=== PATIENT | male | born 1990 | race Caucasian/White ===

== ENCOUNTER → 2024-05-24 | Outpatient (CLI) | payer OTHER, SELFPAY ==
--- NOTE | 2024-05-24 16:12 | RAD_ITS ---
STUDY: X-RAY - ABDOMEN/PELVIS REASON FOR EXAM: Male, 33 years old. KIDNEY STONE TECHNIQUE: Frontal views COMPARISON: None. FINDINGS: Normal visualized lung bases. There is an unremarkable bowel gas pattern. There is no demonstrated free abdominal air. The visualized liver, spleen and kidneys are grossly normal in size and morphology. There is a left-sided ostomy apparatus. Normal soft tissue structures. Normal visualized osseous structures. RAD/Abdomen Single View IMPRESSION: No acute pathology of the abdomen and pelvis. Electronically Signed: Jacek Lu DO at 16:28 EDT Reading Location ID and State: [facility] / [place] Tel [phone], Service support ,
== END | disposition home or self-care (01) ==
PROVIDERS: Referring Provider Nurse Practitioner; Visit Provider Nurse Practitioner
DX: N20.0 Calculus of kidney (principal)
CPT/HCPCS: 74018

== ENCOUNTER → 2024-09-24 | Outpatient (CLI) | payer OTHER, SELFPAY ==
--- NOTE | 2024-09-24 16:30 | CT_ITS ---
We are attempting to reach an attending provider to discuss findings. An addendum with communication details will be sent when the communication is complete. STUDY: CT ABDOMEN AND PELVIS WITHOUT CONTRAST REASON FOR EXAM: Male, 34 years old. CALCULUS OF KIDNEY RADIATION DOSAGE (If Supplied By Facility): CTDIvol = ( 20.30 ) mGy, DLP = ( 1181.86 ) mGycm TECHNIQUE: Transaxial images were obtained from the dome of the diaphragm to the symphysis pubis without oral contrast, and without intravenous contrast. Sagittal and coronal images were reconstructed. Individualized dose optimization techniques were used for this CT. COMPARISON: None. FINDINGS: The visualized lung bases are unremarkable. The visualized portions of the heart are within normal limits. Normal liver. Normal gallbladder and extrahepatic biliary system. Normal spleen. Normal pancreas. Normal bilateral adrenal glands. Normal right kidney. There are tiny bilateral nonobstructing calculi in the lower pole calyx of left kidney and large calculus at the ureteropelvic junction measuring approximately 7 to 8 mm. There is very mild pelvocaliectasis but no significant obstruction Normal visualized stomach. Postsurgical changes status post distal small bowel bowel resection with left lower quadrant stoma placement. 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 . No evidence for acute appendicitis Normal abdominal aorta. Normal inferior vena cava. Normal retroperitoneum. Normal urinary bladder. Small bilateral fat-containing inguinal hernias Normal osseous structures. CT/Abdomen/Pelvis without Cont IMPRESSION: Postsurgical changes status post bowel resection in stomach placement in left lower quadrant with parastomal hernia but no evidence for proximal bowel obstruction.. Large minimally obstructing calculus in the left kidney at the ureteropelvic junction Electronically Signed: Brown Mcclellan MD at 18:52 EST ,
== END | disposition home or self-care (01) ==
PROVIDERS: Referring Provider Urology; Visit Provider Urology
DX: N20.0 Calculus of kidney (principal)
CPT/HCPCS: 74176

== ENCOUNTER → 2024-10-04 | Outpatient (CLI) | payer OTHER, SELFPAY ==
--- NOTE | 2024-10-04 | CALC_PTH ---
PATIENT: MAHI BARBER LOC: [facility] U#:[id number] AGE/SX: 34/M ROOM: RE10/04/[address]: Dr. Alejandro Nesbitt MD : 1990 BED: DIS: 10/04/2024 SPEC #: [id number] RECD: 10/04/24 17:04 STATUS: RADHA GARCIAJanak #: [id number] MAO: 10/04/24 00:[address]: Alejandro Nesbitt DEPT: SURGICAL PATHOLOGY RECD BY: Yo Helton Tissues: CALCULI Procedures: Surgery Specimen Level I HEADER OPERATION: Stone analysis PRE-OP DIAGNOSIS: Calculus of kidney TISSUE SUBMITTED: Calculi GROSS DIAGNOSIS Fragments of stone, clinically urinary stone for analysis (gross only). 10/05/2024 COMMENT The specimen is submitted in its entirety for chemical stone analysis. The results from this study will be reported separately. GROSS DESCRIPTION Received without fixative labeled with the patient's name and designated stone analysis. The specimen consists of multiple fragments of robbins-brown stone measuring <0.1 to 0.3cm in greatest dimension and measuring in aggregate 0.6 x 0.2 x 0.1cm. The entire specimen is submitted for stone analysis. 10/05/2024 CPT: 35669
== END | disposition home or self-care (01) ==
LOC: LABSPEC 15:57
PROVIDERS: Referring Provider Urology; Visit Provider Urology
DX: N20.0 Calculus of kidney (principal)
CPT/HCPCS: 82360; 88300

== ENCOUNTER 2024-10-12 13:29 | Day surgery (SDC) | payer OTHER, SELFPAY ==
[2024-10-12 13:46] VITALS: BP 137/85; PULSE 63; RESP 16; TEMP 36.6; O2SAT 97; BMI 34.4
--- NOTE | 2024-10-12 13:47 | PCM.PRE.AN2 ---
ASA Classification* ASA Classification ASA Classification: 2 Assessment & Plan Anesthesia* Anesthesia Assessment Anesthesia Assessment: Discussed sedation and/or anesthesia options, risks, benefits, and alternatives with patient/parents/legal guardian/POA. Questions invited. The patient/parents/legal guardian/POA seems to understand and agrees to proceed with anesthesia plan. Reviewed the physical assessment, medical history, allergy history and patient home medications list prior to surgery/procedure/anesthetic and documented any changes. Performed airway and anesthesia risk assessments. 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 When Was Last Pacemaker Check QUESTION #4 FULL TEXT: You/Your Family Experience fever (hyperthermia) with Anesthesia Last Oral Intake Last Oral intake: Last Oral Intake NPO since Meds taken in AM with sips of water? 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 Female No 10/09/24 15:23 HX of Motion Sickness Yes 10/09/24 15:23 HX of N/V After Surgery No 10/09/24 15:23 Non-Smoker Yes 10/09/24 15:23 Duration of Surgery greater No 10/09/24 15:23 than 60 minutes Number of Risk Factors 2 10/09/24 15:23 PONV Score Moderate Risk 10/09/24 15:23 Respiratory Assessment Respiratory Assessment - naval surface fire support planner: Respiratory Tract Infection Hx - naval surface fire support planner Hx Respiratory Tract Infection No 10/09/24 15:23 STOP Sleep Apnea STOP Sleep Apnea - naval surface fire support planner: STOP Sleep Apnea - naval surface fire support planner Hx Hypertension No 10/09/24 15:23 Hx Sleep Apnea No 10/09/24 15:23 CPAP BIPAP Do you snore loudly (louder No 10/09/24 15:23 than talking or can be heard Do you often feel tired/ No 10/09/24 15:23 fatigued/ sleepy during daytime? Has anyone observed you stop No 10/09/24 15:23 breathing during sleep? STOP Results Negative 10/09/24 15:23 QUESTION #5 FULL TEXT : Do you snore loudly (louder than talking or can be heard through closed doors)? 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 Specify any problems Hx of Preganancy in last 3 N/A 10/09/24 15:23 Months Nurse Filling Out Transfusion VCHRISTIN 10/09/24 15:23 & Questions: Date: 10/09/24 10/09/24 15:23 Time: 15:24 10/09/24 15:23 Patient unable to answer at this time (ie. confused, unrespo /Reproduction History /Reproductive History - naval surface fire support planner: /Reproductive Hx- naval surface fire support planner Hx Now Gestational Age (in weeks): EDC: Hx Hx Para Hx Section SAB Active Medications Active Medications: Current Medications Generic Name Dose Route Start Last Admin Trade Name Freq PRN Reason Stop Dose Admin Cefazolin Sodium 2 gm/ N/A 20 mls @ 400 mls/hr 10/12/24 15:25 IV 10/12/24 15:27 PREOP ONE Sodium Chloride 1,000 mls @ 15 mls/hr 10/12/24 13:35 IV 10/18/24 02:54 .Q48H [facility] Protocol PFSH Medical History History of Clostridium difficile infection Anxiety Kidney stones Back pain Injury of head and neck Former smoker History of Crohn's disease Sleep apnea Home Medications ?Medication ?Instructions ?Recorded ?Last Taken ?Type cefuroxime axetil 500 mg tablet 500 mg PO BID 10/09/24 Unknown History potassium citrate 10 mEq (1,080 10 meq PO BID 10/09/24 Unknown History mg) tablet,extended release ustekinumab 90 mg/mL subcutaneous 90 mg subcut .Q8 WEEKS 10/09/24 Unknown History syringe (Stelara) Allergy/AdvReac Type Severity Reaction Status Date / Time amoxicillin Allergy Severe Hives Verified 10/09/24 15:13 clavulanic acid (From Allergy Severe Hives Verified 10/09/24 15:13 Augmentin) Penicillins (PCN) Allergy Severe Hives Verified 10/09/24 15:13 Surgical History History of colostomy History of bowel resection History of cystoscopy History of cystoscopy Social History Smoking Status: Former smoker Review of Systems (Anesthesia) ROS Narrative System reviewed and no additional complaints, except as documented.
[2024-10-12] MEDS: 0.9% Normal Saline (1000mL) 1,000 ML 15 ML IV (13:59)
--- NOTE | 2024-10-12 14:16 | PCM.HP.STD ---
HPI - General General Date of Service: 10/12/24 Chief Complaint: Recurrent kidney stones HPI Narrative MAHI BARBER, is a 34 M who presents to laser a lot of fragments in the left ureter patient had a fairly large stone in the left renal pelvis was lasered stent was removed but then he had a lot of renal colic afterwards CAT scan was done demonstrated multiple fragments stuck along the course of the ureter I had a stent placed in [facility] he now comes here to [facility] to definitively treat the rest of the remaining fragments along the course of the ureter and also laser any remaining fragments in the kidney plan to laser all the stones I do not plan to place a stent again. [facility] Medical History (Updated 10/12/24 @ 14:[address] Alejandro Nesbitt MD) History of Clostridium difficile infection Anxiety Kidney stones Back pain Injury of head and neck Former smoker History of Crohn's disease Sleep apnea Home Medications ?Medication ?Instructions ?Recorded ?Last Taken ?Type cefuroxime axetil 500 mg tablet 500 mg PO BID 10/09/24 Unknown History potassium citrate 10 mEq (1,080 10 meq PO BID 10/09/24 Unknown History mg) tablet,extended release ustekinumab 90 mg/mL subcutaneous 90 mg subcut .Q8 WEEKS 10/09/24 Unknown History syringe (Stelara) ciprofloxacin HCl 500 mg tablet 500 mg PO BID #10 tabs 10/12/24 Unknown Rx (Cipro) oxycodone 5 mg tablet 5 mg PO Q6H PRN pain 3 days #20 10/12/24 Unknown Rx tabs Allergy/AdvReac Type Severity Reaction Status Date / Time amoxicillin Allergy Severe Hives Verified 10/09/24 15:13 clavulanic acid (From Allergy Severe Hives Verified 10/09/24 15:13 Augmentin) Penicillins (PCN) Allergy Severe Hives Verified 10/09/24 15:13 Surgical History History of colostomy History of bowel resection History of cystoscopy History of cystoscopy Social History Smoking Status: Former smoker Vital Signs Vital Signs Vital Signs: 10/12/24 13:46 10/12/24 13:46 Temperature 97.9 F Temperature Source Temporal Pulse Rate 63 Respiratory Rate 16 Respiratory Pattern Normal Blood Pressure 137/85 H Blood Pressure Mean 102 Blood Pressure Source Monitor Blood Pressure Position Semi-Fowlers Blood Pressure Location Left Arm Pulse Ox 97 Oxygen Delivery Method Room Air Weight Weight: 112 kg Body Mass Index (BMI) 34.4
--- NOTE | 2024-10-12 14:17 | DCINST_ITS ---
Discharge Instructions Diet Discharge Diet: No restrictions DC O2, CPAP, BIPAP needs Home O2 Discharge instructions: No Dressing / Incision Discharge Activity: Return to Normal Activity and May Not Drive (while taking narcotic pain medications.) Dressing / Incision Call your doctor if you observe: Fever of 101 or Higher Follow Up Care Please Follow Up With: Alejandro Nesbitt MD When: Call [phone] for an appointment Test Results: Test results from this visit will be discussed in further detail at your follow- up appointment, if applicable. Discharge Plan Admission Primary Reason for Your Visit: Laser of left kidney stones and stent removal Attending Provider: Alejandro Nesbitt Primary Care Provider: LONNY JONES Instructions Print Language: Spanish Discharge Orders/Prescriptions Prescriptions: New oxycodone 5 mg tablet 5 mg PO Q6H PRN (Reason: pain) 3 Days Qty: 20 0RF ciprofloxacin HCl [Cipro] 500 mg tablet 500 mg PO BID Qty: 10 0RF Continued potassium citrate 10 mEq (1,080 mg) tablet extended release 10 meq PO BID cefuroxime axetil 500 mg tablet 500 mg PO BID Stelara 90 mg/mL syringe 90 mg subcut .Q8 WEEKS Referrals / Follow Up: LONNY JONES [Other] Alejandro Nesbitt MD [Med Staff - Active Staff] - Disposition Disposition (needs filled in before D/C Order can be placed): Home, Self Care
[2024-10-12] MEDS: Cefazolin 2 GM in Syringe IV (14:45)
--- NOTE | 2024-10-12 15:19 | OP.PCM_ITS ---
Operative Report (Standard) Operative Information Date of Procedure: 10/12/24 Pre-Operative Diagnosis: Multiple fragments along the course of the left ureter status post stent Post-Operative Diagnosis: The same Surgery/Procedure Performed: Cystoscopy, removal of left stent, left ureteroscopy laser lithotripsy of stones. supervisor dyer: No Type of Anesthesia: General RN Documented Start/Stop Times: Operation Date: 10/12/24 15:25 Case Time Into Pre-Op 10/12/24 13:34 Out of Pre-Op 10/12/24 14:35 Anesthesia Start 10/12/24 14:38 Into Room 10/12/24 14:38 Procedure Start 10/12/24 14:48 Procedure Start Time: 14:48 Procedure Stop Time: 15:20 Select all DRAINS/GRAFTS/IMPLANTS that apply: None Estimated Blood Loss: 0 Specimen collected: No Description of surgery: This is a 34-year-old male with Crohn's disease and recurrent kidney stones he had a really large stone in the left renal pelvis underwent laser lithotripsy of the stone did really well with this thought we lasered everything that small little pieces we pulled out the stent however he had some big fragments that were stuck in the ureter had that the stent replaced now comes back to finish lasering the stone fragments I could not pass. Patient is taken back to the operating room after smooth induction of anesthesia he was placed in dorsolithotomy position. Went in the bladder with a 21 Yoruba rigid cystourethroscope grabbed the existing stent pulled out the meatus and then went into the bladder with the flexible ureteroscope was able to get into the ureter encountered some stone fragments that then used irrigation to pull these fragments out and then went up the ureter I encountered several other fragments this was lasered using 150 ?m laser fiber with the thulium laser I break these pieces up and then let him flow down the ureter and go back up the ureter until I got all the pieces out of the ureter removed then it went up to the kidney did not really have any major fragments in the upper pole, and then I went to the lower pole of the left kidney and there was a large fragments in a pile of stones or these were all lasered completely with the thulium laser into little tiny pieces after successfully lasering everything I did not see anything any other fragments like that could cause problems worked my way down the ureter no other fragments along the course of the ureter I then decided not to put a stent in since everything was really just. I then drained the patient's bladder anesthetic was reversed and taken back to PACU in good condition we will see in about 6 weeks for checkup Surgical Findings: Lots of stones along the course of the ureter that were lasered and removed from the ureter, a pile of stones in the left lower pole kidney that were lasered completely Complications Complications: No Admit VTE Documentation VTE Present on Admission: No VTE Mechan Device Prophylaxis: SCD's VTE Pharm Prophylaxis ordered?: No
--- NOTE | 2024-10-12 15:25 | CALC_PTH ---
PATIENT: MAHI BARBER LOC: [facility] U#:[id number] AGE/SX: 34/M ROOM: RE10/12/[address]: Dr. Alejandro Nesbitt MD : 1990 BED: DIS: 10/12/2024 SPEC #: [id number] RECD: 10/12/24 16:28 STATUS: RADHA DOUGLAS #: [id number] MAO: 10/12/24 15:[address]: Alejandro Nesbitt DEPT: SURGICAL PATHOLOGY RECD BY: Steffanie Mckeon Tissues: CALCULI Procedures: Surgery Specimen Level I HEADER OPERATION: Ureteroscopy, laser PRE-OP DIAGNOSIS: Calculus of left kidney TISSUE SUBMITTED: Renal calculi GROSS DIAGNOSIS A fragment of stone, clinically left renal calculus (gross only). 10/15/2024 COMMENT The calculus is submitted in its entirety for chemical stone analysis. The results from this study will be reported separately. GROSS DESCRIPTION Received without fixative labeled with the patient's name and designated left renal calculi. The specimen consists of a minute fragment of robbins-brown stone measuring 0.1 cm in greatest dimension. The entire specimen is submitted for stone analysis. 10/15/2024 CPT: 80627
--- NOTE | 2024-10-12 15:29 | PCM.POST.ANE ---
Anesthesia: Postop Eval I Current Vital Signs Temperature: 97.6 F Pulse Rate: 81 Blood Pressure: 138/93 Respiratory Rate: 16 Pulse Ox: 96 Oxygen Delivery Method: Room Air Assessment Airway patent: Yes Spontaneous unlabored respirations: Yes Mental status: Awake and Calm nausea: No Vomiting: No Anesthesia Complication: No Fluid Hydration Crystalloid volume administer (ml): 500 Total IV fluid infused: 500 Progress Note Anesthesia document: Postop Eval 1 completed: Yes
[2024-10-12 15:30] VITALS: BP 137/85; BP 137/90; BP 138/83; BP 138/93; PULSE 71; PULSE 76; PULSE 81; RESP 16; RESP 18; TEMP 36.4; O2SAT 96; O2SAT 97; O2SAT 98
[2024-10-12 15:35] VITALS: BP 137/85; BP 145/78; PULSE 78; RESP 18; O2SAT 98
[2024-10-12 15:45] VITALS: BP 131/75; BP 137/85; PULSE 66; RESP 14; O2SAT 96
[2024-10-12 16:01] VITALS: BP 132/83; BP 137/85; PULSE 62; RESP 18; TEMP 36.3; O2SAT 95
[2024-10-12 16:16] VITALS: BP 130/85; BP 137/85; PULSE 82; RESP 16; O2SAT 97
--- NOTE | 2024-10-14 10:46 | PCM.POSTANE2 ---
Anesthesia Postop Eval I Sum Postop Eval Completion status Anesthesia document: Postop Eval 1 completed: Yes Anesthesia Postop Eval I Summary Anesthesia Postop Eval I Summary: Anesthesia Postop Eval I: Assessment Summary Airway patent Yes 10/12/24 15:30 BRONC BUSTER.MDOT Spontaneous unlabored Yes 10/12/24 15:30 BRONC BUSTER.MDOT respirations Mental status Awake,Calm 10/12/24 15:30 BRONC BUSTER.MDOT nausea No 10/12/24 15:30 BRONC BUSTER.MDOT Vomiting No 10/12/24 15:30 BRONC BUSTER.MDOT Anesthesia Postop Eval I: Fluid Summary Crystalloid volume administer 500 10/12/24 15:30 BRONC BUSTER.MDOT (ml) Colloids volume administered ( ml) Blood Product volume administered (ml) Total IV fluid infused 500 10/12/24 15:30 BRONC BUSTER.MDOT Anesthesia Postop Eval I: Summary Notes Anesthesia Complication No 10/12/24 15:30 BRONC BUSTER.MDOT Anesthesia Complication Comment: Post-operative progress note Anesthesia: Postop Eval II Evaluation Mental status: Awake Pain Level: 0 nausea: No Vomiting: No
--- NOTE | 2024-10-14 10:46 | POSTOPAN2_ITS ---
Anesthesia Postop Eval I Sum Postop Eval Completion status Anesthesia document: Postop Eval 1 completed: Yes Anesthesia Postop Eval I Summary Anesthesia Postop Eval I Summary: Anesthesia Postop Eval I: Assessment Summary Airway patent Yes 10/12/24 15:30 SOCIAL SERVICES.MDOT Spontaneous unlabored Yes 10/12/24 15:30 SOCIAL SERVICES.MDOT respirations Mental status Awake,Calm 10/12/24 15:30 SOCIAL SERVICES.MDOT nausea No 10/12/24 15:30 SOCIAL SERVICES.MDOT Vomiting No 10/12/24 15:30 SOCIAL SERVICES.MDOT Anesthesia Postop Eval I: Fluid Summary Crystalloid volume administer 500 10/12/24 15:30 SOCIAL SERVICES.MDOT (ml) Colloids volume administered ( ml) Blood Product volume administered (ml) Total IV fluid infused 500 10/12/24 15:30 SOCIAL SERVICES.MDOT Anesthesia Postop Eval I: Summary Notes Anesthesia Complication No 10/12/24 15:30 SOCIAL SERVICES.MDOT Anesthesia Complication Comment: Post-operative progress note Anesthesia: Postop Eval II Evaluation Mental status: Awake Pain Level: 0 nausea: No Vomiting: No
[2024-10-22 12:07] LABS: Ca Oxalate, Dihydrate 10 % (.); Uric Acid 90 % (.)
== END 2024-10-12 16:51 | disposition home or self-care (01) ==
LOC: SDC 13:31 → AC 13:32
PROVIDERS: Referring Provider Urology; Visit Provider Urology
PROC: 0TJ98ZZ Inspection of Ureter, Via Natural or Artificial Opening Endoscopic (ICD-10-PCS; CPT 52352; principal; 2024-10-12 15:15)
DX: N20.1 Calculus of ureter (principal); Z87.891 Personal history of nicotine dependence
CPT/HCPCS: 52353; 00918; 82360; 88300; J2405